=== PATIENT | male | born 1950 | race Caucasian/White ===

== ENCOUNTER → 2017-04-26 | Day surgery (SDC) | payer OTHER, MEDICAID ==
[~2017-04-26] VITALS: Ht 177.8 cm; Wt 57.0 kg
[~2017-04-26] MED LIST: BUPIVACAINE/PF-EPI 0.25% 1:200K ONE; FENTANYL PF 250 MCG/5ML ONE; LACTATED RINGERS 1,000 ML IV SCH; MIDAZOLAM 1 MG/ML, 2ML ONE; Methocarbamol PO; PANT40TA3 PO; TRAM50TA2 PO
[2017-04-26 09:10] VITALS: BP 118/82
== END | disposition home or self-care (01) ==
LOC: OUT 08:05
PROVIDERS: ATTEND Surgery
DX: Z01.810 Encounter for preprocedural cardiovascular examination (principal); K82.4 Cholesterolosis of gallbladder
CPT/HCPCS: 93005; J2250; J3010